=== PATIENT | female | born 1940 | race Caucasian/White ===

== ENCOUNTER 2021-10-09 18:50 | Emergency (ER) | payer MEDICARE, OTHER ==
[2021-10-09] MEDS ORDERED: Sodium Chloride 0.9% 10 ML Syringe FLUSH PRN (19:01)
[2021-10-09 19:38] LABS: ESTIMATED GFR 65 mL/min (>60)
== END 2021-10-09 20:07 | disposition home or self-care (01) ==
LOC: LB.ED 18:50
DX: R07.9 Chest pain, unspecified (principal); R05.9 Cough, unspecified; I25.2 Old myocardial infarction; Z20.822 Contact with and (suspected) exposure to COVID-19; Z88.5 Allergy status to narcotic agent
CPT/HCPCS: 36415; 71045; 80053; 84484; 85025; 93005; 93010; 99283; 99285; U0002